=== PATIENT | male | born 1950 | race Caucasian/White ===

== ENCOUNTER 2016-04-30 09:40 | Day surgery (SDC) | payer OTHER ==
[~2016-04-30] VITALS: Ht 170.2 cm; Wt 81.6 kg
[~2016-04-30 09:40] MED LIST: AMLODIPINE BESYL5 MG PO; CYCLOBENZAPRINE10 MG PO; EPIPEN 2-PAK0.3 MG; LOSARTAN POTASS25 MG PO; NIACIN ER500 MG PO; SIMVASTATIN20 MG PO; TRAMADOL HCL50 MG PO; ZYRTEC ALLERGY10 MG PO; [UNRECOGNIZED DRUG - REMARK] PO
--- NOTE | 2016-04-30 11:41 | DIAGNOSTIC IMAGING REPORT ---
PROCEDURE: XR SPINE 2-3 VIEW-PAIN CLINIC INDICATION: BACK PAIN TECHNIQUE: C-arm fluoroscopy provided to Dr. Bauer for therapeutic spinal injection. Fluoroscopy time 0.22 minutes 24.5 mGy). COMPARISON: None. FINDINGS: AP and lateral C-arm views. There is a needle tip overlying the posterior spinal canal at the L5-S1 level with injection of a small amount of epidural contrast material. IMPRESSION: 1. C-arm fluoroscopy for therapeutic spinal injection (performed by Dr. Bauer).
--- NOTE | 2016-05-02 09:04 | PROCEDURE NOTE ---
DATE OF PROCEDURE: 04/30/2016 ATTENDING PHYSICIAN/PROVIDER: John Paul Bauer MD PREPROCEDURE DIAGNOSIS: 1. Bilateral sciatica. POSTPROCEDURE DIAGNOSIS: 1. Bilateral sciatica PROCEDURE PERFORMED: 1. L5-S1 intralaminar epidural steroid injection INDICATIONS: The patient is referred by ALICJA Burger, for lumbar epidural steroid injection. He complains of low back pain and tingling in his toes bilaterally. The pain is dull and 4/10, made worse by standing and better by sitting and ice. The degree of disability is 9/10 for mood, relations with others, and enjoyment of life. MEDICAL/SURGICAL HISTORY: Past surgical history: Sinus surgery, colonoscopy, vasectomy. Medical history: High cholesterol, high blood pressure, left bundle branch block , seasonal allergies, inguinal hernia, kidney stone when he was 39, restless leg syndrome, squamous cell carcinoma of the face, treated. MEDICATIONS: 1. Diphenhydramine hydrochloride 25 mg 2 tablets at bedtime. 2. Niacin 500 mg orally twice daily. 3. Cetirizine one 10 mg capsule daily as needed for allergies. 4. Epinephrine Epi-PACK as needed for allergies. 5. Cyclobenzaprine 10 mg orally 3 times daily for muscle spasm. 6. Simvastatin 20 mg orally at bedtime. 7. Losartan 25 mg orally once daily. 8. Amlodipine 5 mg orally once daily. ALLERGIES: 1. NO KNOWN DRUG ALLERGIES. FAMILY HISTORY: Noncontributory. SOCIAL HISTORY: the patient is . He is retired. He does not smoke. He drinks occasional alcohol. REVIEW OF SYSTEMS: Noncontributory. PHYSICAL EXAMINATION: GENERAL: A healthy-appearing man in no acute distress. VITAL SIGNS: Weight 180 pounds, height 5 feet 7 inches. Blood pressure 155/87, pulse 92, respirations 17, temperature 98.4. Room air saturation 100%. NEUROLOGIC: Alert and oriented. Cranial nerves grossly intact. HEAD/NECK: Normocephalic and atraumatic. Neck: Full range of motion. Airway MP2. Thyromental distance 3 fingerbreadths. CARDIOVASCULAR: Heart sounds normal. RESPIRATORY: Chest clear. EXTREMITIES: Straight leg raising reduced to 45 degrees bilaterally. LAB/IMAGING: None available. IMPRESSION: 1. Bilateral sciatica PLAN: Lumbar epidural steroid injection at L5-S1. DESCRIPTION OF PROCEDURE: After obtaining informed consent, the patient was taken to the procedure room and positioned in the prone position. The lumbar region was prepped with ChloraPrep and draped in sterile fashion. Lidocaine 1% was infiltrated over the L5-S1 interspace and an 18-gauge Tuohy needle was advanced to loss of resistance. Placement was confirmed by injection of 2 mL of Omnipaque 240, which showed good epidural spread. This was followed by an injection of 10 mL of 0.5% lidocaine containing 80 mg of Depo -Medrol. The needle was removed and a Band-Aid applied. The patient walked back comfortably to the recovery area and said that his pain was completely gone. He was observed for 30 minutes and no neurological deficits developed. He was advised to follow up with ALICJA Burger.
== END 2016-04-30 11:55 | disposition home or self-care (01) ==
LOC: CDU SRH 09:40 → SCU SRH 09:40 → CDU SRH 10:00
PROVIDERS: Specialist
PROC: 3E0R33Z Introduction of Anti-inflammatory into Spinal Canal, Percutaneous Approach (ICD-10-PCS; principal; 2016-04-30 10:00)
PROC: 3E0R3BZ Introduction of Anesthetic Agent into Spinal Canal, Percutaneous Approach (ICD-10-PCS; principal; 2016-04-30 10:00)
DX: M54.32 Sciatica, left side (principal); M54.31 Sciatica, right side
CPT/HCPCS: 29240; 55000